=== PATIENT | female | born 1960 | race Caucasian/White ===

== ENCOUNTER → 2019-07-17 13:04 | Outpatient (CLI) | payer OTHER, SELFPAY ==
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
== END ==
PROVIDERS: PCP Nurse Practitioner Family; Visit Provider Nurse Practitioner Family
DX: R07.81 Pleurodynia (principal); J98.11 Atelectasis
CPT/HCPCS: 71101